=== PATIENT | female | born 1980 | race Two or more races ===

== ENCOUNTER 2025-01-09 13:41 | Outpatient (AMB) | payer MEDICAID, SELFPAY ==
[2025-01-09 13:51] VITALS: BP 139/87; PULSE 97; RESP 18; TEMP 36.7; O2SAT 96; BMI 43.7
--- NOTE | 2025-01-09 13:51 | PD.ORTHCLVIS ---
Vital signs 01/09/25 13:51 Height 1.63 m Height Method Stated Weight 115.383 kg Weight Measurement Method Standing Scale BMI 43.7 BP 139/87 H Blood Pressure Source Automatic Cuff Blood Pressure Location Right Upper Arm Position Sitting Respiration 18 Pulse 97 Pulse Source Monitor Temp 98.0 F Temp Source Temporal Artery Scan Pulse Oximetry (%) 96 Oxygen Delivery Method Room Air Med/Allergies Allergies & Medications Allergies NKA* Allergy (Uncoded 01/09/25 13:53) Medication Reconciliation losartan 25 mg tablet 25 mg PO QDAY 01/09/25 [History Confirmed 01/09/25] meloxicam 7.5 mg tablet 7.5 mg PO QDAY #45 tabs 01/09/25 [Rx] semaglutide 0.25 mg or 0.5 mg (2 mg/3 mL) subcutaneous pen injector (Ozempic) 0.5 mg subcut QWEEK 01/09/25 [History Confirmed 01/09/25] Exam Exam Breathing is nonlabored. Patient has a normal mood and affect. Bilateral extremities were evaluated and demonstrates sensation intact to light touch. Palpable pedal pulses are present. No significant edema is present. Bilateral hips were examined. The patient has no pain with log roll of the hips. Internal rotation to 30 degrees and external rotation to 30 degrees is painless. Negative FADIR. Left knee was examined today. The left knee is in reasonable alignment. Range of motion from 0-120 degrees. Knee is stable to varus and valgus as well as AP translation with <5mm. Patient has a negative McMurrays. There is no pain with patellofemoral compression and no crepitus noted. The knee is nontender to palpation. The right knee was also examined. The right knee is in varus alignment. Range of motion from 0-115 degrees. Knee is stable to varus and valgus as well as AP translation with <5mm. Patient has a negative McMurrays. There is no pain with patellofemoral compression and no crepitus noted. The knee is tender to palpation medially. Right knee x-rays are not able to view as the patient only has an MRI That demonstrates degenerative changes Assessment and Plan Problem List (1) Arthritis of knee, right: Status: Acute Plan: Patient is a 44-year-old female with right knee arthritis. We will get new x-rays as she does not have any. Will likely do cortisone injections at the next visit as it has been over a year since the last ones. She is also very young and we discussed weight loss. Office Procedures GNS Level of Care Nursing/Assessment Patient Status: Initial/New Patient Nursing Assessment/Reassesment: Medication Reconciliation, Update PMH in EMR and Vital Signs Coordination of Care: Complex Care and Chronic Disease 1-5, Education Complex Pt/Fam, Consent,records obtained, informed consent, 2-3 Insurance Autorizations needed, Lab and Imaging orders, Results/Orders obtained and Staff clarify orders New Patient Charge New Patient Point Assignment: [id number] New Patient Point Charge: SALES LEDGER CLERK Level 4 ([id number]) MA Intake Visit Data Collection New Patient or Established: New Patient not seen in past 3 years at [facility] (considered New) Reason for Visit:: KNEE PAIN Seen by Clinical Staff ONLY (RN/MA): No Verbal consent obtained for Telemed visit?: No PCP or OBGYN visit in last 3 months: Yes Hx Now: No Do You Feel Safe at Home: Yes Authorities Contacted: N/A Questionairres Past Medical History Past Medical History Have you ever been diagnosed with any of the following: Respiratory Problems Smoking: No Smoking Cessation Counseling: No Smoking Exposure: No Stomache/Intestinal Problems Obesity: Yes Subjective Visit Visit for: new patient and knee Immunization / Flu Flu Vaccine in the Last 12 Months: No Flu Vaccine Exclusion Criteria: No Exclusion Criteria History of Present Illness Chief complaint: right knee pain Date of injury / onset of symptoms: 2 YEARS Patient is a 44 Female with right knee pain has been ongoing for several years. She has had 1 injection in the past and it lasted for 3 months. She is on naproxen. The pain is starting to affect her and the pain is more medial. 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
--- NOTE | 2025-01-09 13:53 | XR_ITS ---
Examination: Right knee 4 views TECHNIQUE: AP oblique lateral axial right knee 4 views Exam date and time: January 09, 2025 1401 hours INDICATIONS: Knee pain several months. FINDINGS: Advanced narrowing medial joint space right knee Moderate osteoarthritis patellofemoral and lateral joint spaces No fractures No patellar dislocation IMPRESSION: Advanced narrowing medial joint space right knee
== END 2025-01-09 13:59 | disposition home or self-care (01) ==
LOC: HODSRG 13:41
PROVIDERS: PCP Physician Assistant Medical; Referring Provider Physician Assistant Medical; Supervising Provider Orthopaedic Surgery Adult Reconstructive Orthopaedic Surgery; Visit Provider Orthopaedic Surgery Adult Reconstructive Orthopaedic Surgery
DX: M17.11 Unilateral primary osteoarthritis, right knee (principal); M25.561 Pain in right knee
CPT/HCPCS: 73564; 99204; G0463

== ENCOUNTER 2025-02-06 09:28 | Outpatient (AMB) | payer MEDICAID, SELFPAY ==
--- NOTE | 2025-02-06 09:53 | PD.ORTHCLVIS ---
Vital signs 02/06/25 09:54 Height 1.63 m Height Method Stated Weight 112.633 kg Weight Measurement Method Standing Scale BMI 42.4 BP 142/87 H Blood Pressure Source Automatic Cuff Blood Pressure Location Left Upper Arm Position Sitting Respiration 17 Pulse 75 Pulse Source Monitor Temp 98.4 F Temp Source Temporal Artery Scan Pulse Oximetry (%) 98 Oxygen Delivery Method Room Air Med/Allergies Allergies & Medications Allergies NKA* Allergy (Uncoded 02/06/25 09:55) Medication Reconciliation losartan 25 mg tablet 25 mg PO QDAY 01/09/25 [History Confirmed 02/06/25] meloxicam 7.5 mg tablet 7.5 mg PO QDAY #45 tabs 01/09/25 [Rx Confirmed 02/06/25] semaglutide 0.25 mg or 0.5 mg (2 mg/3 mL) subcutaneous pen injector (Ozempic) 0.5 mg subcut QWEEK 01/09/25 [History Confirmed 02/06/25] Exam Exam Breathing is nonlabored. Patient has a normal mood and affect. Bilateral extremities were evaluated and demonstrates sensation intact to light touch. Palpable pedal pulses are present. No significant edema is present. Bilateral hips were examined. The patient has no pain with log roll of the hips. Internal rotation to 30 degrees and external rotation to 30 degrees is painless. Negative FADIR. Left knee was examined today. The left knee is in reasonable alignment. Range of motion from 0-120 degrees. Knee is stable to varus and valgus as well as AP translation with <5mm. Patient has a negative McMurrays. There is no pain with patellofemoral compression and no crepitus noted. The knee is nontender to palpation. The right knee was also examined. The right knee is in varus alignment. Range of motion from 0-115 degrees. Knee is stable to varus and valgus as well as AP translation with <5mm. Patient has a negative McMurrays. There is no pain with patellofemoral compression and no crepitus noted. The knee is tender to palpation medially. Weightbearing x-rays demonstrate significant joint space narrowing medially Assessment and Plan Problem List (1) Arthritis of knee, right: Status: Acute Plan: Patient is a 44-year-old female with right knee arthritis. We Will likely do cortisone injections at the next visit as it has been over a year since the last ones. She is also very young and we discussed weight loss. Plan Recommend knee cortisone injection as patient would like to proceed with conservative treatment at this time. The risks and benefits of the procedure were reviewed with the patient and patient gave verbal consent to continue with the procedure. Procedure: performed by Dr. Valdovinos Using sterile technique the Right knee was thoroughly prepped with alcohol, and approximately 1 cc of Kenalog 40 mg/mL and 4 cc of 1% lidocaine was injected without resistance into the medial tibial femoral joint space. The patient tolerated the procedure. Office Procedures GNS Level of Care Nursing/Assessment Patient Status: Established Patient Nursing Assessment/Reassesment: Medication Reconciliation, Update PMH in EMR and Vital Signs Coordination of Care: Complex Care and Chronic Disease 1-5, Education Complex Pt/Fam, Consent,records obtained, informed consent, Results/Orders obtained and Staff clarify orders Established Patient Charge Established Patient Point Assignment: 95 Established Patient Point Charge: EP Level 3 (80-115) Surgical Proc/IM SQ injection Major Surgical Procedure: Yes (KNEE INJECTION) Medication Given Medication Given Medication Given: Yes Documented Dose Given: 4 Route: Infiitration Medication Given Medication Given Medication Given: Yes Documented Dose Given: 1 Route: Infiitration Office Meds Xylocaine 10 mg/mL (1 %) injection solution Performing Provider: Oli Valdovinos MD Performing Location: [facility] Administered by: Oli Valdovinos MD on 02/06/25 10:23 Dose Route Admin Location Dispensed Lot Number Expiration Date [facility] [employer] 20 mL Infiltration 20 mL triamcinolone acetonide 40 mg/mL suspension for injection Performing Provider: Oli Valdovinos MD Performing Location: [facility] Administered by: Oli Valdovinos MD on 02/06/25 10:23 Dose Route Admin Location Dispensed Lot Number Expiration Date [facility] [employer] 40 mg intra-articular KNEE 1 mL [id number] 08/18/26 2663-9810-11 [employer]LOE PARENTERAL [place] Intake Visit Data Collection New Patient or Established: Established Patient (seen at [facility] within 3 years) Reason for Visit:: XRAY RESULT/RT KNEE INJECTION Seen by Clinical Staff ONLY (RN/MA): No Respite Care Provider Required: No PCP or OBGYN visit in last 3 months: Yes Hx Now: No Do You Feel Safe at Home: Yes Authorities Contacted: N/A Questionairres Past Medical History Past Medical History Have you ever been diagnosed with any of the following: Respiratory Problems Smoking: No Smoking Cessation Counseling: No Smoking Exposure: No Stomache/Intestinal Problems Obesity: Yes Subjective Visit Visit for: follow up visit and knee (RT KNEE ) Immunization / Flu Flu Vaccine in the Last 12 Months: No Flu Vaccine Exclusion Criteria: Refused by Patient History of Present Illness Chief complaint: right knee pain Date of injury / onset of symptoms: 2 YEARS Patient is a 44 Female with right knee pain has been ongoing for several years. She has had 1 injection in the past and it lasted for 3 months. She is on naproxen. The pain is starting to affect her and the pain is more medial. The left knee has no issues just the right. She is here for x-ray results and an injection today Personal History Occupation: SHIPPING AND HANDLE Red flag PMH: none BMI Counceling provided: Yes Pain Pain level (0-10): 8 Pain duration: 2 WEEKS Pain location: anterior Pain quality: aching Pain timing: increases with activity Associated signs & symptoms: numbness Ambulatory data Ambulatory device: none Walking distance (minutes): 1 Treatments Number of previous injections: 1 Improvement with previous injections: Yes Number of Physical Therapy sessions: 0 Improvement with PT: No Improvement with NSAIDS: n/a Review of Systems Review of Systems: All systems negative unless otherwise noted in HPI.
[2025-02-06 09:54] VITALS: BP 142/87; PULSE 75; RESP 17; TEMP 36.9; O2SAT 98; BMI 42.4
== END 2025-02-06 10:15 | disposition home or self-care (01) ==
LOC: HODSRG 09:28
PROVIDERS: PCP Physician Assistant Medical; Referring Provider Physician Assistant Medical; Supervising Provider Orthopaedic Surgery Adult Reconstructive Orthopaedic Surgery; Visit Provider Orthopaedic Surgery Adult Reconstructive Orthopaedic Surgery
DX: M17.11 Unilateral primary osteoarthritis, right knee (principal); M25.561 Pain in right knee; E66.9 Obesity, unspecified; Z68.41 Body mass index [BMI] 40.0-44.9, adult
CPT/HCPCS: 20610; 99213; J3301; J3490; G0463

== ENCOUNTER 2025-06-10 08:51 | Outpatient (AMB) | payer MEDICAID, SELFPAY ==
--- NOTE | 2025-06-10 09:22 | PD.ORTHCLVIS ---
Vital signs 06/10/25 09:24 Height 1.63 m Height Method Stated Weight 97.182 kg Weight Measurement Method Standing Scale BMI 36.6 BP 153/96 H Blood Pressure Source Automatic Cuff Blood Pressure Location Left Upper Arm Position Sitting Respiration 19 Pulse 76 Pulse Source Monitor Temp 97.9 F Temp Source Temporal Artery Scan Pulse Oximetry (%) 93 L Oxygen Delivery Method Room Air Med/Allergies Allergies & Medications Allergies NKA* Allergy (Uncoded 06/10/25 09:24) Medication Reconciliation losartan 25 mg tablet 25 mg PO QDAY 01/09/25 [History Confirmed 06/10/25] meloxicam 7.5 mg tablet 7.5 mg PO QDAY #45 tabs 01/09/25 [Rx Confirmed 06/10/25] semaglutide 0.25 mg or 0.5 mg (2 mg/3 mL) subcutaneous pen injector (Ozempic) 0.5 mg subcut QWEEK 01/09/25 [History Confirmed 06/10/25] Exam Exam Breathing is nonlabored. Patient has a normal mood and affect. Bilateral extremities were evaluated and demonstrates sensation intact to light touch. Palpable pedal pulses are present. No significant edema is present. Bilateral hips were examined. The patient has no pain with log roll of the hips. Internal rotation to 30 degrees and external rotation to 30 degrees is painless. Negative FADIR. Left knee was examined today. The left knee is in reasonable alignment. Range of motion from 0-120 degrees. Knee is stable to varus and valgus as well as AP translation with <5mm. Patient has a negative McMurrays. There is no pain with patellofemoral compression and no crepitus noted. The knee is nontender to palpation. The right knee was also examined. The right knee is in varus alignment. Range of motion from 0-115 degrees. Knee is stable to varus and valgus as well as AP translation with <5mm. Patient has a negative McMurrays. There is no pain with patellofemoral compression and no crepitus noted. The knee is tender to palpation medially. Weightbearing x-rays demonstrate significant joint space narrowing medially Assessment and Plan Problem List (1) Arthritis of knee, right: Status: Acute Plan: Patient is a 44-year-old female with right knee arthritis. We Will likely do cortisone injections at the next visit as it has been over a year since the last ones. She is also very young and we discussed weight loss. (2) Arthritis of left knee: Status: Acute Plan Recommend knee cortisone injection as patient would like to proceed with conservative treatment at this time. The risks and benefits of the procedure were reviewed with the patient and patient gave verbal consent to continue with the procedure. Procedure: performed by Dr. Valdovinos Using sterile technique the Right knee was thoroughly prepped with alcohol, and approximately 1 cc of Depo-Medrol 80mg/mL and 4 cc of 0.2% ropivacaine was injected without resistance into the medial tibial femoral joint space. The patient tolerated the procedure. Recommend knee cortisone injection as patient would like to proceed with conservative treatment at this time. The risks and benefits of the procedure were reviewed with the patient and patient gave verbal consent to continue with the procedure. Procedure: performed by Dr. Valdovinos Using sterile technique the left knee was thoroughly prepped with alcohol, and approximately 1 cc of Depo-Medrol 80mg/mL and 4 cc of 0.2% ropivacaine was injected without resistance into the medial tibial femoral joint space. The patient tolerated the procedure. Office Procedures GNS Level of Care Nursing/Assessment Patient Status: Established Patient Nursing Assessment/Reassesment: Medication Reconciliation, Update PMH in EMR and Vital Signs Coordination of Care: Complex Care and Chronic Disease 1-5, Education Complex Pt/Fam, Consent,records obtained, informed consent, Results/Orders obtained and Staff clarify orders Established Patient Charge Established Patient Point Assignment: 95 Established Patient Point Charge: EP Level 3 (80-115) Surgical Proc/IM SQ injection Minor Surgical Procedure: Yes (BILATERAL KNEE INJECTION) Medication Given Medication Given Medication Given: Yes Documented Dose Given: 1 Route: Infiitration Medication Given Medication Given Medication Given: Yes Documented Dose Given: 1 Route: Infiitration Medication Given Medication Given Medication Given: Yes Documented Dose Given: 4 Route: Infiitration Medication Given Medication Given Medication Given: Yes Documented Dose Given: 4 Route: Infiitration Office Meds methylprednisolone acetate 80 mg/mL suspension for injection Performing Provider: Oli Valdovinos MD Performing Location: [facility] Administered by: Oli Valdovinos MD on 06/10/25 10:56 Dose Route Admin Location Dispensed Lot Number Expiration Date Package [facility] [employer] 80 mg intra-articular 1 mL [id number] 08/17/26 [address]-7 [id number] [employer] methylprednisolone acetate 80 mg/mL suspension for injection Performing Provider: Oli Valdovinos MD Performing Location: [facility] Administered by: Oli Valdovinos MD on 06/10/25 10:56 Dose Route Admin Location Dispensed Lot Number Expiration Date Package NDC NDC Shampoo Assistant 80 mg intra-articular 1 mL [id number] 08/17/26 [address]-2 [id number] [employer] ropivacaine (PF) 2 mg/mL (0.2 %) injection solution Performing Provider: Oli Valdovinos MD Performing Location: [facility] Administered by: Oli Valdovinos MD on 06/10/25 10:56 Dose Route Admin Location Dispensed Lot Number Expiration Date Package NDC NDC Shampoo Assistant 20 mL Infiltration 20 mL [id number] 10/17/27 18116-124-20 [id number] [facility] ropivacaine (PF) 2 mg/mL (0.2 %) injection solution Performing Provider: Oli Valdovinos MD Performing Location: [facility] Administered by: Oli Valdovinos MD on 06/10/25 10:56 Dose Route Admin Location Dispensed Lot Number Expiration Date Package NDC NDC Shampoo Assistant 20 mL Infiltration 20 mL [id number] 10/17/27 93905-105-51 [id number] [facility] Intake Visit Data Collection New Patient or Established: Established Patient (seen at [facility] within 3 years) Reason for Visit:: R KNEE INJ F/U Seen by Clinical Staff ONLY (RN/MA): No Automotive Sales Manager Required: No PCP or OBGYN visit in last 3 months: Yes Hx Now: No Do You Feel Safe at Home: Yes Authorities Contacted: N/A Questionairres Past Medical History Past Medical History Have you ever been diagnosed with any of the following: Respiratory Problems Smoking: No Smoking Cessation Counseling: No Smoking Exposure: No Stomache/Intestinal Problems Obesity: Yes Subjective Visit Visit for: follow up visit and knee (RT KNEE ) Immunization / Flu Flu Vaccine in the Last 12 Months: No Flu Vaccine Exclusion Criteria: Refused by Patient History of Present Illness Chief complaint: right knee pain Date of injury / onset of symptoms: 2 YEARS Patient is a 44 Female with right knee pain has been ongoing for several years. She has had 1 injection in the past and it lasted for 3 months. She is on naproxen. The pain is starting to affect her and the pain is more medial. She has been having pain in the left knee as well and would like an injection in that 1 as well. The last injection on the right knee lasted for 3 months Personal History Occupation: SHIPPING AND HANDLE Red flag PMH: none BMI Counceling provided: Yes Pain Pain level (0-10): 8 Pain duration: 2 WEEKS Pain location: anterior Pain quality: aching Pain timing: increases with activity Associated signs & symptoms: numbness Ambulatory data Ambulatory device: none Walking distance (minutes): 1 Treatments Number of previous injections: 1 Improvement with previous injections: Yes Number of Physical Therapy sessions: 0 Improvement with PT: No Improvement with NSAIDS: n/a Review of Systems Review of Systems: All systems negative unless otherwise noted in HPI.
[2025-06-10 09:24] VITALS: BP 153/96; PULSE 76; RESP 19; TEMP 36.6; O2SAT 93; BMI 36.6
--- NOTE | 2025-06-10 09:36 | XR_ITS ---
Examination: Bilateral AP knees single view Left knee PA lateral axial 3 views TECHNIQUE: Bilateral AP knees standing single view Left knee PA lateral axial 3 views total 4 views Date and time: June 10, 2025 1036 hours INDICATIONS: Left knee pain 3 months. FINDINGS: Moderate osteopenia. Moderate to advanced narrowing medial joint space right knee Moderate osteoarthritis lateral joint space right knee Moderate narrowing medial joint space left knee Mild to moderate osteoarthritis left patellofemoral joint Moderate left knee effusion No fracture IMPRESSION: Moderate to advanced osteoarthritis medial joint space right knee Moderate narrowing medial joint space left knee Mild to moderate osteoarthritis left patellofemoral joint Moderate left knee effusion
== END 2025-06-10 09:36 | disposition home or self-care (01) ==
PROVIDERS: PCP Physician Assistant Medical; Referring Provider Physician Assistant Medical; Supervising Provider Orthopaedic Surgery Adult Reconstructive Orthopaedic Surgery; Visit Provider Orthopaedic Surgery Adult Reconstructive Orthopaedic Surgery
DX: M17.0 Bilateral primary osteoarthritis of knee (principal); M25.561 Pain in right knee; M25.462 Effusion, left knee; E66.9 Obesity, unspecified; Z71.3 Dietary counseling and surveillance; Z68.36 Body mass index [BMI] 36.0-36.9, adult
CPT/HCPCS: 20610; 73564; 99213; J1010; J2795; G0463

== ENCOUNTER 2025-09-09 08:22 | Outpatient (AMB) | payer MEDICAID, SELFPAY ==
[2025-09-09 08:32] VITALS: BP 121/82; PULSE 80; RESP 16; TEMP 36.4; O2SAT 96; BMI 33.0
--- NOTE | 2025-09-09 08:32 | ORTHONT_ITS ---
Vital signs 09/09/25 08:32 Height 1.63 m Height Method Stated Weight 87.742 kg Weight Measurement Method Standing Scale BMI 33.0 BP 121/82 Blood Pressure Source Automatic Cuff Blood Pressure Location Left Upper Arm Position Sitting Respiration 16 Pulse 80 Pulse Source Monitor Temp 97.5 F Temp Source Temporal Artery Scan Pulse Oximetry (%) 96 Oxygen Delivery Method Room Air Med/Allergies Allergies & Medications Allergies NKA* Allergy (Uncoded 09/09/25 08:34) Medication Reconciliation losartan 25 mg tablet 25 mg PO QDAY 01/09/25 [History Confirmed 09/09/25] meloxicam 7.5 mg tablet 7.5 mg PO QDAY #45 tabs 01/09/25 [Rx Confirmed 09/09/25] semaglutide 0.25 mg or 0.5 mg (2 mg/3 mL) subcutaneous pen injector (Ozempic) 0.5 mg subcut QWEEK 01/09/25 [History Confirmed 09/09/25] Exam Exam Breathing is nonlabored. Patient has a normal mood and affect. Bilateral extremities were evaluated and demonstrates sensation intact to light touch. Palpable pedal pulses are present. No significant edema is present. Bilateral hips were examined. The patient has no pain with log roll of the hips. Internal rotation to 30 degrees and external rotation to 30 degrees is painless. Negative FADIR. Left knee was examined today. The left knee is in reasonable alignment. Range of motion from 0-120 degrees. Knee is stable to varus and valgus as well as AP translation with <5mm. Patient has a negative McMurrays. There is no pain with patellofemoral compression and no crepitus noted. The knee is nontender to palpation. The right knee was also examined. The right knee is in varus alignment. Range of motion from 0-115 degrees. Knee is stable to varus and valgus as well as AP translation with <5mm. Patient has a negative McMurrays. There is no pain with patellofemoral compression and no crepitus noted. The knee is tender to palpation medially. Weightbearing x-rays demonstrate significant joint space narrowing medially Assessment and Plan Problem List (1) Arthritis of knee, right: Status: Acute Plan: Patient is a 44-year-old female with right knee arthritis. We Will likely do cortisone injections at the next visit as it has been over a year since the last ones. She is also very young and we discussed weight loss. (2) Arthritis of left knee: Status: Acute Plan Recommend knee cortisone injection as patient would like to proceed with conservative treatment at this time. The risks and benefits of the procedure were reviewed with the patient and patient gave verbal consent to continue with the procedure. Procedure: performed by Dr. Valdovinos Using sterile technique the Right knee was thoroughly prepped with alcohol, and approximately 1 cc of Depo-Medrol 80mg/mL and 4 cc of 0.2% ropivacaine was injected without resistance into the medial tibial femoral joint space. The patient tolerated the procedure. Recommend knee cortisone injection as patient would like to proceed with conservative treatment at this time. The risks and benefits of the procedure were reviewed with the patient and patient gave verbal consent to continue with the procedure. Procedure: performed by Dr. Valdovinos Using sterile technique the left knee was thoroughly prepped with alcohol, and approximately 1 cc of Depo-Medrol 80mg/mL and 4 cc of 0.2% ropivacaine was injected without resistance into the medial tibial femoral joint space. The patient tolerated the procedure. Office Procedures GNS Level of Care Nursing/Assessment Patient Status: Established Patient Nursing Assessment/Reassesment: Medication Reconciliation, Update PMH in EMR and Vital Signs Coordination of Care: Complex Care and Chronic Disease 1-5, Education Complex Pt/Fam, Consent,records obtained, informed consent, Results/Orders obtained and Staff clarify orders Established Patient Charge Established Patient Point Assignment: 95 Established Patient Point Charge: EP Level 3 (80-115) Surgical Proc/IM SQ injection Minor Surgical Procedure: Yes (BILATERAL KNEE INJ) Medication Given Medication Given Medication Given: Yes Documented Dose Given: 2 Route: Infiitration Medication Given Medication Given Medication Given: Yes Documented Dose Given: 8 Route: Infiitration Office Meds methylprednisolone acetate 80 mg/mL suspension for injection Performing Provider: Oli Valdovinos MD Performing Location: [facility] Administered by: Oli Valdovinos MD on 09/09/25 08:59 Dose Route Admin Location Dispensed Lot Number Expiration Date Pack age [facility] [employer] Practitioner 160 mg intra-articular KNEE 2 mL [id number] 05/18/27 [address]-1 [id number] [employer] ropivacaine (PF) 2 mg/mL (0.2 %) injection solution Performing Provider: Oli Valdovinos MD Performing Location: [facility] Administered by: Oli Valdovinos MD on 09/09/25 08:59 Dose Route Admin Location Dispensed Lot Number Expiration Date Pack age [facility] Insolven[employer] Practitioner 40 mL Infiltration KNEE 40 mL [id number] 02/15/27 9106-8358-35 [id number] ROSA M DC MA Intake Visit Data Collection New Patient or Established: Established Patient (seen at [facility] within 3 years) Reason for Visit:: R KNEE INJ F/U Seen by Clinical Staff ONLY (RN/MA): No Surgical Coder Required: No PCP or OBGYN visit in last 3 months: Yes Hx Now: No Do You Feel Safe at Home: Yes Authorities Contacted: N/A Questionairres Past Medical History Past Medical History Have you ever been diagnosed with any of the following: Respiratory Problems Smoking: No Smoking Cessation Counseling: No Smoking Exposure: No Stomache/Intestinal Problems Obesity: Yes Subjective Visit Visit for: follow up visit and knee (RT KNEE ) Immunization / Flu Flu Vaccine in the Last 12 Months: No Flu Vaccine Exclusion Criteria: Refused by Patient History of Present Illness Chief complaint: right knee pain Date of injury / onset of symptoms: 2 YEARS Patient is a 44 Female with right knee pain has been ongoing for several years. She has had 1 injection in the past and it lasted for 3 months. She is on naproxen. The pain is starting to affect her and the pain is more medial. She has been having pain in the left knee as well and would like an injection in that 1 as well. The last injection on the right knee lasted for 3 months Personal History Occupation: [employer] HAND[employer] Red flag PMH: none BMI Counceling provided: Yes Pain Pain level (0-10): 8 Pain duration: 2 WEEKS Pain location: anterior Pain quality: aching Pain timing: increases with activity Associated signs & symptoms: numbness Ambulatory data Ambulatory device: none Walking distance (minutes): 1 Treatments Number of previous injections: 1 Improvement with previous injections: Yes Number of Physical Therapy sessions: 0 Improvement with PT: No Improvement with NSAIDS: n/a Review of Systems Review of Systems: All systems negative unless otherwise noted in HPI.
== END 2025-09-09 08:41 | disposition home or self-care (01) ==
LOC: HODSRG 08:22
PROVIDERS: PCP Physician Assistant Medical; Referring Provider Physician Assistant Medical; Supervising Provider Orthopaedic Surgery Adult Reconstructive Orthopaedic Surgery; Visit Provider Orthopaedic Surgery Adult Reconstructive Orthopaedic Surgery
DX: M17.0 Bilateral primary osteoarthritis of knee (principal); M25.562 Pain in left knee; M25.561 Pain in right knee; E66.9 Obesity, unspecified; Z68.33 Body mass index [BMI] 33.0-33.9, adult
CPT/HCPCS: 20610; 99213; J1010; J2795; G0463